=== PATIENT | female | born 2000 | race Caucasian/White ===

== ENCOUNTER 2020-05-18 15:40 | Emergency (ER) | payer MEDICAID ==
[~2020-05-18] VITALS: Ht 162.6 cm; Wt 61.7 kg
[2020-05-18 18:39] LABS: BASOPHILS # (AUTO) 0.1 X10'3 (0-0.2); BASOPHILS % (AUTO) 0.8 % (0-1); EOSINOPHILS # (AUTO) 0.2 X10'3 (0-0.9); EOSINOPHILS % (AUTO) 2.4 % (0-6); HEMATOCRIT 40.1 % (35.0-45.0); HEMOGLOBIN 13.6 g/dl (12.0-16.0); LYMPHOCYTES % (AUTO) 39.6 % (21-51); MEAN CORPUSCULAR HEMOGLOBIN 29.5 PG (27.0-31.0); MEAN CORPUSCULAR HGB CONC 33.9 g/dL (33.0-36.5); MEAN PLATELET VOLUME 7.4 FL (7.4-10.4); MONOCYTES # (AUTO) 0.6 X10'3 (0-0.9); MONOCYTES % (AUTO) 7.4 % (2-12); NEUTROPHILS # (AUTO) 3.8 X10'3 (1.8-7.7); NEUTROPHILS % (AUTO) 49.8 % (42-75); PLATELET COUNT 339 X10'3 (140-440); RED BLOOD COUNT 4.61 X10'6 (4.20-5.60); RED CELL DISTRIBUTION WIDTH 14.1 % (11.5-14.5); WHITE BLOOD COUNT 7.7 X10'3 (4.5-11.0)
[2020-05-18 18:59] LABS: ALANINE AMINOTRANSFERASE 15 U/L (12-78); ALBUMIN 4.4 G/DL (3.4-5.0); ALBUMIN/GLOBULIN RATIO 1.1 (1.1-1.5); ALKALINE PHOSPHATASE 74 IU/L (20-180); ANION GAP 11 (8-16); ASPARTATE AMINO TRANSFERASE 13 U/L (10-37); BILIRUBIN,TOTAL 0.7 MG/DL (0.1-1.0); BLOOD UREA NITROGEN 12 MG/DL (7-18); BUN/CREATININE RATIO 15.4 (6.6-38.0); CALCIUM 9.1 MG/DL (8.5-10.1); CHLORIDE 105 MMOL/L (99-107); CREATININE 0.78 MG/DL (0.40-0.90); GLUCOSE 108 MG/DL (70-104); POTASSIUM 3.4 MMOL/L (3.5-5.1); SODIUM 141 MMOL/L (135-145); TOTAL CARBON DIOXIDE 25.5 MMOL/L (24-32); TOTAL PROTEIN 8.4 G/DL (6.4-8.2); eGFR > 90 ML/MIN
[2020-05-18 19:08] LABS: ETHANOL < 0.010 GM/DL (0.0-0.010)
[2020-05-18] MEDS ORDERED: OLANZapine 2.5MG tablet PO SCH (19:10)
[2020-05-18] MEDS ORDERED: OLANZapine 2.5MG tablet PO ONE (19:10)
--- NOTE | 2020-05-18 19:12 | NUR ---
Dr Gonzales notified of auditory hallucinations telling her things are not safe. orders received patient notified that she is safe and validated she can hear voices however I can not she than stated she sees flashes of light.
[2020-05-18 19:15] LABS: ACETAMINOPHEN < 2.0 UG/ML (10-30)
--- NOTE | 2020-05-18 20:42 | NUR ---
losed wants light left on verbalized fear of dark
--- NOTE | 2020-05-18 21:10 | NUR ---
SLEEPING ON RIGHT SIDE, NO DISTRESS.
--- NOTE | 2020-05-18 22:47 | NUR ---
SLEEPING ON BACK
--- NOTE | 2020-05-19 02:12 | NUR ---
pt sleeping, lying on her right side with blankets covering to her shouders. sitter within view of pt aat.
--- NOTE | 2020-05-19 04:55 | NUR ---
PT UPDATED OF THE NEED FOR URINE, STATES SHE IS STILL UNABLE TO VOID. WASHERY BOSS , LIN, WILLIAM. PKT HAS BEEN SENT TO MENTAL HEALTH OFFICE.
--- NOTE | 2020-05-19 07:00 | NUR ---
PT IS SLEEPING
--- NOTE | 2020-05-19 08:00 | NUR ---
PT IS SLEEPING
[2020-05-19 09:14] LABS: URINE HCG NEGATIVE (NEG)
[2020-05-19 09:15] LABS: CLARITY,URINE CLOUDY (Clear); COLOR,URINE YELLOW (Yellow); GLUCOSE, URINE NEGATIVE (Neg); KETONES,URINE NEGATIVE (Neg); LEUKOCYTE ESTERASE ,URINE SMALL (Neg); NITRITES, URINE POSITIVE (Neg); OCCULT BLOOD,URINE SMALL (Neg); PROTEIN,URINE NEGATIVE (Neg)
[2020-05-19 09:16] LABS: UA COLLECTION TYPE CLN CATCH MIDSTREAM
[2020-05-19 09:23] LABS: BACTERIA,URINE 4+ /HPF (Neg); MUCUS STRANDS MANY /LPF (Neg); SQUAMOUS EPITHELIAL CELL,UR MODERATE /LPF (FEW); WBC CLUMPS,URINE MODERATE /HPF (NEGATIVE); WBC,URINE 50-100 /HPF (0-4)
[2020-05-19 09:29] LABS: URINE AMPHETAMINE SCREEN NEGATIVE (Neg); URINE BARBITUATE SCREEN NEGATIVE (Neg); URINE BENZODIAZEPINES SCREEN POSITIVE (Neg); URINE CANNABINOID SCREEN NEGATIVE (Neg); URINE COCAINE SCREEN NEGATIVE (Neg); URINE METHADONE SCREEN NEGATIVE (Neg); URINE OPIATE SCREEN NEGATIVE (Neg); URINE PHENCYCLIDINE SCREEN NEGATIVE (Neg)
--- NOTE | 2020-05-19 09:50 | NUR ---
pt walked over from main er room 14 to overflow 26
--- NOTE | 2020-05-19 11:00 | NUR ---
pt is waiting for her brother to come get her
--- NOTE | 2020-05-19 12:00 | NUR ---
pt is resting in her room no issues
[2020-05-19] MEDS ORDERED: LEVO50TA8 PO (12:29)
--- NOTE | 2020-05-19 13:00 | NUR ---
pt is resting
[2020-05-19] MEDS ORDERED: levoTHYROXINE 25mcg tablet PO ONE (13:50)
--- NOTE | 2020-05-19 14:00 | NUR ---
pt is stating she is having si again and hearing voices. pt doesnt feel like its safe to go home at this time. pt asked to move to room 23 so she could be closer to the nurse's station. family informed that she will be staying on a 5150. Spoke with Dr. Carmona who recommended order zyprexa 10 mg bid and ativan 0.5 mg bid along with a micro of urine
[2020-05-19] MEDS ORDERED: OLANZAPINE 5 MG TABLET PO ONE (14:45)
[2020-05-19] MEDS ORDERED: olanzapine 10mg tablet PO ONE (14:45)
[2020-05-19] MEDS ORDERED: LORazepam 0.5 MG tablet PO PRN (14:55)
[2020-05-19] MEDS: olanzapine 10mg tablet PO SCH (15:10)
--- NOTE | 2020-05-19 15:19 | NUR ---
pt is resting in bed at this time
--- NOTE | 2020-05-19 16:00 | NUR ---
pt is resting
--- NOTE | 2020-05-19 17:05 | NUR ---
pt is talking to her brother
--- NOTE | 2020-05-19 18:00 | NUR ---
pt is resting in her room
--- NOTE | 2020-05-19 18:24 | NUR ---
Assumed care of pt. Pt resting in bed, assisted to restroom and given meal tray.
--- NOTE | 2020-05-19 20:17 | NUR ---
Pt resting in bed with sitter at room. [facility] called stating [place] available for pt and requires a rapid covid test.
--- NOTE | 2020-05-19 21:44 | NUR ---
Faxed copy of HCG result and Covid swab to [facility]
--- NOTE | 2020-05-20 01:22 | NUR ---
Pt resting in bed, appears to be sleeping. RR 16 pt pink, warm and dry.
[2020-05-20 05:54] VITALS: BP 94/56
--- NOTE | 2020-05-20 05:55 | NUR ---
Pt resting. Vitals taken. Pt states she is tired but the voices she is hearing are not as bad.
--- NOTE | 2020-05-20 06:51 | NUR ---
Pt is sleeping. Respirations unlabored. NAD
[2020-05-20] MEDS ORDERED: levoTHYROXINE 25mcg tablet PO SCH (07:00)
[2020-05-20] MEDS: olanzapine 10mg tablet PO SCH (07:46)
--- NOTE | 2020-05-20 07:52 | NUR ---
Pt awake for morning pills and assessment. Pt given warm blanket. Pt denies any pain or further needs at this time.
--- NOTE | 2020-05-20 09:00 | NUR ---
Pt sleeping. Respirations unlabored. NAD
--- NOTE | 2020-05-20 10:00 | NUR ---
Pt sleeping. Respirations unlabored. NAD
--- NOTE | 2020-05-20 11:00 | NUR ---
I AGREE WITH INITIAL ASSESSMENT
--- NOTE | 2020-05-20 12:57 | NUR ---
[facility] CALLED, PT HAS BEEN ACCEPTED TO [facility] BY DR RUBIN. PT WILL BE TRANSFER WILL OCCURE AT APPROX 1500 THIS AFTERNOON. PROVIDER NOTIFIED
--- NOTE | 2020-05-20 14:57 | NUR ---
AMBULATED WNL TO BATHROOM WITH HER SITTER
--- NOTE | 2020-05-20 15:01 | NUR ---
PATIENT APPEARS WITHDRAWN,SAD. PATIENT STATES THAT SHE IS HEARING VOICING SAYING "MURDER SELF". SHE STATES THAT SHE TOOK PSYCHEDELIC MUSHROOMS ABOUT A MONTH AGO AND HAS HEARD VOICES EVER SINCE. SHE SEES A THERAPIST IN [place] AND WAS TAKING CLASSES AT [facility] [place] IN [place] AND NOW HAS MOVED IN WITH HER PARENTS.
--- NOTE | 2020-05-20 17:17 | NUR ---
ORIGINAL 0312 CENT TO [facility] VIA MOOKIE, PCT
[2020-05-20] MEDS ORDERED: nitrofuran/nitrofuran macrocrysal 100 MG capsule PO SCH (20:00)
== END 2020-05-20 17:17 | disposition home or self-care (01) ==
LOC: ER 15:41
DX: F29 Unspecified psychosis not due to a substance or known physiological condition (principal); Z20.828 Contact with and (suspected) exposure to other viral communicable diseases; F41.9 Anxiety disorder, unspecified; F32.9 Major depressive disorder, single episode, unspecified; F12.90 Cannabis use, unspecified, uncomplicated; Z79.899 Other long term (current) drug therapy
CPT/HCPCS: 36415; 70450; 80053; 80305; 80320; 80329; 81001; 81025; 84443; 85025; 87088; 87635; 99284; C9803; 87186

== ENCOUNTER 2020-06-03 21:01 | Emergency (ER) | payer MEDICAID ==
[~2020-06-03] VITALS: Ht 165.1 cm; Wt 54.5 kg
[~2020-06-03 21:01] MED LIST: ATI1T PO; LEVO50TA8 PO; PRAZ1CAP5 PO; RISP1TAB98 PO; RISP2TAB85 PO
--- NOTE | 2020-06-03 21:17 | NUR ---
Pt also reports taking some "shrooms" today around 1500.
--- NOTE | 2020-06-03 21:42 | NUR ---
Spoke with Poison Control at this time, who report to get usual lab work and monitor patient for 6 hours on panel monitor/BP. notified.
[2020-06-03 21:57] LABS: BASOPHILS % (AUTO) 0.5 % (0-1); EOSINOPHILS # (AUTO) 0.3 X10'3 (0-0.9); EOSINOPHILS % (AUTO) 3.6 % (0-6); HEMATOCRIT 39.8 % (35.0-45.0); LYMPHOCYTES # (AUTO) 3.4 X10'3 (1.1-4.8); LYMPHOCYTES % (AUTO) 37.4 % (21-51); MEAN CORPUSCULAR HEMOGLOBIN 28.3 PG (27.0-31.0); MEAN CORPUSCULAR HGB CONC 32.8 g/dL (33.0-36.5); MEAN CORPUSCULAR VOLUME 86.2 FL (78-98); MEAN PLATELET VOLUME 7.3 FL (7.4-10.4); MONOCYTES # (AUTO) 0.8 X10'3 (0-0.9); MONOCYTES % (AUTO) 8.3 % (2-12); NEUTROPHILS # (AUTO) 4.6 X10'3 (1.8-7.7); NEUTROPHILS % (AUTO) 50.2 % (42-75); PLATELET COUNT 314 X10'3 (140-440); RED BLOOD COUNT 4.61 X10'6 (4.20-5.60); RED CELL DISTRIBUTION WIDTH 14.1 % (11.5-14.5); WHITE BLOOD COUNT 9.1 X10'3 (4.5-11.0)
[2020-06-03 22:22] LABS: ALANINE AMINOTRANSFERASE 20 U/L (12-78); ALBUMIN 4.2 G/DL (3.4-5.0); ALBUMIN/GLOBULIN RATIO 1.2 (1.1-1.5); ALKALINE PHOSPHATASE 66 IU/L (20-180); ANION GAP 10 (8-16); ASPARTATE AMINO TRANSFERASE 23 U/L (10-37); BILIRUBIN,TOTAL 1.1 MG/DL (0.1-1.0); BLOOD UREA NITROGEN 10 MG/DL (7-18); BUN/CREATININE RATIO 11.6 (6.6-38.0); CALCIUM 8.9 MG/DL (8.5-10.1); CHLORIDE 109 MMOL/L (99-107); CREATININE 0.86 MG/DL (0.40-0.90); GLUCOSE 89 MG/DL (70-104); POTASSIUM 3.5 MMOL/L (3.5-5.1); SODIUM 146 MMOL/L (135-145); TOTAL CARBON DIOXIDE 27.4 MMOL/L (24-32); TOTAL PROTEIN 7.8 G/DL (6.4-8.2); eGFR 84 ML/MIN
[2020-06-03 22:32] LABS: ACETAMINOPHEN < 2.0 UG/ML (10-30); ETHANOL < 0.010 GM/DL (0.0-0.010)
[2020-06-03 23:45] LABS: URINE HCG NEGATIVE (NEG)
[2020-06-03 23:58] LABS: URINE AMPHETAMINE SCREEN NEGATIVE (Neg); URINE BARBITUATE SCREEN NEGATIVE (Neg); URINE BENZODIAZEPINES SCREEN NEGATIVE (Neg); URINE CANNABINOID SCREEN NEGATIVE (Neg); URINE COCAINE SCREEN NEGATIVE (Neg); URINE METHADONE SCREEN NEGATIVE (Neg); URINE OPIATE SCREEN NEGATIVE (Neg); URINE PHENCYCLIDINE SCREEN NEGATIVE (Neg)
--- NOTE | 2020-06-04 01:00 | NUR ---
Pt sleeping, vitals taken
[2020-06-04 01:52] LABS: CLARITY,URINE CLEAR (Clear); COLOR,URINE YELLOW (Yellow); GLUCOSE, URINE NEGATIVE (Neg); KETONES,URINE NEGATIVE (Neg); LEUKOCYTE ESTERASE ,URINE NEGATIVE (Neg); NITRITES, URINE NEGATIVE (Neg); OCCULT BLOOD,URINE NEGATIVE (Neg); PROTEIN,URINE TRACE mg/dl (Neg); UROBILINOGEN,URINE 0.2 E.U/dL (0.2-1.0)
[2020-06-04 01:58] LABS: UA COLLECTION TYPE CLN CATCH MIDSTREAM
[2020-06-04 02:08] LABS: RBC,URINE 0-2 /HPF (0-2); WBC,URINE 0-4 /HPF (0-4)
[2020-06-04 02:09] LABS: BACTERIA,URINE 3+ /HPF (Neg); MUCUS STRANDS MODERATE /LPF (Neg); SQUAMOUS EPITHELIAL CELL,UR MANY /LPF (FEW)
--- NOTE | 2020-06-04 03:59 | NUR ---
Spoke with poison control pharmacist, Siri. She advises an EKG as well as checking oral cavity for clark and testing pt's ability to swallow effectively.
--- NOTE | 2020-06-04 04:32 | NUR ---
EKG done, shown to Dr. Lowe. Pt asked for sleep aid, notified Dr. Lowe who states he will put in an order for Melatonin. Pt mouth inspected, some redness noted on top of tongue. Pt denies any pain in mouth or throat and denies pain when swallowing. Pt able to drink water without issues.
[2020-06-04] MEDS ORDERED: RISP1TAB98 PO (04:53)
[2020-06-04] MEDS ORDERED: PRAZ1CAP5 PO (04:53)
[2020-06-04] MEDS ORDERED: RISP2TAB85 PO (04:53)
[2020-06-04] MEDS ORDERED: LORA-269 PO (04:53)
--- NOTE | 2020-06-04 06:17 | NUR ---
Pt sleeping. RR16
--- NOTE | 2020-06-04 07:00 | NUR ---
Received pt from [facility].
--- NOTE | 2020-06-04 07:15 | NUR ---
Pt began crying. Asked pt what was wrong. Pt stated, "I'm scared to , I don't want to ." Reassured patient that she was safe. Pt wished for someone to sit by her. Reassured pt that RN and PCT could see her from the nurses's station.
[2020-06-04] MEDS: levoTHYROXINE 25mcg tablet PO SCH ×2 (07:40→08:16)
[2020-06-04] MEDS: risperiDONE 0.5mg tablet PO SCH ×2 (08:00→08:16)
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
[2020-06-04] MEDS: LORazepam 1 MG tablet PO SCH ×2 (08:16→14:00)
--- NOTE | 2020-06-04 08:30 | NUR ---
Pt being evaluated by SCM.
--- NOTE | 2020-06-04 08:32 | NUR ---
Note genesis in EDM - 06/04/20 at 0834 by BRIANNE Ordered some chicken broth for the patient per her request. Pt drank some of the broth. Pt spit out her pills. Pt stated that the pills make her feel sick. Pt stated that the pills made her feel suicidal. Pt stated that before she was on these pills, she was on some other ones that made her hear voices.
--- NOTE | 2020-06-04 08:34 | NUR ---
Ordered some chicken broth for the patient per her request. Pt drank some of the broth. Pt spit out her pills. Pt stated that the pills make her feel sick. Pt stated that the pills made her feel suicidal. Pt stated that before she was on these pills, she was on some other ones that made her hear voices. Noted Risperdal and levothyroxine in emesis bag, did not find the ativan, it may have dissolved in her mouth.
--- NOTE | 2020-06-04 09:02 | NUR ---
Breaking primary RN, pt is supine in bed, was just speaking to SHAY Camara, she is now aware that the plan is to send her upstairs, she is not pleased with the decision, will continue to monitor
--- NOTE | 2020-06-04 09:53 | NUR ---
Pt is being placed on a [place]0.
--- NOTE | 2020-06-04 11:53 | NUR ---
Received call from poison control and updated on pts VSs and mental status. No new recommendations.
--- NOTE | 2020-06-04 12:43 | NUR ---
Received a call from Lizet at [facility] to inquire about the patient. They requested recent TSH and UA results be faxed to [place] office and sent to them. Called [place] office who state [facility]. [place] office is requesting a rapid Covid test be done for placement. [facility] wanted to verify with infection control that we had enough rapid tests to do so. Left message for [facility] marketing content coordinator. Addendum: 06/04/20 at 1314 by BRIANNE Received a call back from marketing content coordinator he will check to see if we have adequate supplies to do a rapid Covid test.
--- NOTE | 2020-06-04 13:15 | NUR ---
Pt c/o nausea but declined offer to obtain order for antinausea medication stating that she doesn't want to take medicine.
--- NOTE | 2020-06-04 13:15 | NUR ---
[facility] called to say we have enough supplies to do a rapid Covid test on the pt.
--- NOTE | 2020-06-04 13:19 | NUR ---
Pt is on the phone with her brother.
--- NOTE | 2020-06-04 13:20 | NUR ---
Notified [facility] office that a rapid Covid test will be done on the patient.
--- NOTE | 2020-06-04 13:41 | NUR ---
Pt states she is a vegetarian and is requesting a diet change.
--- NOTE | 2020-06-04 13:53 | NUR ---
Collected and sent a rapid Covid swab.
--- NOTE | 2020-06-04 15:13 | NUR ---
Lab results faxed to [facility] office and [facility] per requirements for pt placement.
--- NOTE | 2020-06-04 15:49 | NUR ---
Rylie from [facility] called to say pt has been accepted at [facility] by Dr Graham. substation superintendent time will be just after 1900 [place].
--- NOTE | 2020-06-04 16:14 | NUR ---
Pt adjusted her own bed using the controls at the bottom. Pt has been frequently getting out of bed on her own and walking around. Pt stated that ever since she used shrooms weeks ago she had continue to feel like she is on a mushroom trip.
[2020-06-04 17:29] VITALS: BP 108/71
--- NOTE | 2020-06-04 17:32 | NUR ---
Spoke with Cori's mom per patient's wishes. Mom notified that pt is being transferred to [facility] this evening.
--- NOTE | 2020-06-04 18:56 | NUR ---
Assumed care from RICKY Craig. Pt's DC planned for around 7 pm pickup to moved to [facility]. Pt is aware of the plan. Pt sitting up in her bed and intermittently walking around the unit and stopping and stretching her arms. She is cooperative. Flat affect. Reported to have been cooperative and appropriate throughout the day.
[2020-06-04] MEDS ORDERED: prazosin 1mg capsule PO SCH (21:00)
[2020-06-04] MEDS ORDERED: risperiDONE 2mg tablet PO SCH (21:00)
== END 2020-06-04 19:38 ==
LOC: ER 21:02
DX: T54.91XA Toxic effect of unspecified corrosive substance, accidental (unintentional), initial encounter (principal); Z20.828 Contact with and (suspected) exposure to other viral communicable diseases; F29 Unspecified psychosis not due to a substance or known physiological condition; F41.9 Anxiety disorder, unspecified; F32.9 Major depressive disorder, single episode, unspecified; F12.90 Cannabis use, unspecified, uncomplicated; Z79.899 Other long term (current) drug therapy; Y92.89 Other specified places as the place of occurrence of the external cause
CPT/HCPCS: 36415; 80053; 80305; 80320; 80329; 81001; 81025; 85025; 87635; 93005; 99285; C9803

== ENCOUNTER 2020-08-26 20:38 | Emergency (ER) | payer MEDICAID ==
[~2020-08-26] VITALS: Ht 162.6 cm; Wt 113.6 kg
[~2020-08-26 20:38] MED LIST changes: -ATI1T PO; +LORA-269 PO
[2020-08-26 21:35] LABS: URINE HCG NEGATIVE (NEG)
[2020-08-26 21:37] LABS: CLARITY,URINE CLEAR (Clear); COLOR,URINE STRAW (Yellow); GLUCOSE, URINE NEGATIVE (Neg); KETONES,URINE NEGATIVE (Neg); LEUKOCYTE ESTERASE ,URINE NEGATIVE (Neg); NITRITES, URINE NEGATIVE (Neg); OCCULT BLOOD,URINE NEGATIVE (Neg); PH,URINE 6.5 (4.8-8.0); PROTEIN,URINE NEGATIVE (Neg); UROBILINOGEN,URINE 0.2 E.U/dL (0.2-1.0)
[2020-08-26 21:40] LABS: URINE AMPHETAMINE SCREEN NEGATIVE (Neg); URINE BARBITUATE SCREEN NEGATIVE (Neg); URINE BENZODIAZEPINES SCREEN NEGATIVE (Neg); URINE CANNABINOID SCREEN NEGATIVE (Neg); URINE COCAINE SCREEN NEGATIVE (Neg); URINE METHADONE SCREEN NEGATIVE (Neg); URINE OPIATE SCREEN NEGATIVE (Neg); URINE PHENCYCLIDINE SCREEN NEGATIVE (Neg)
[2020-08-26 21:44] LABS: UA COLLECTION TYPE CLN CATCH MIDSTREAM
[2020-08-26 21:47] LABS: BASOPHILS % (AUTO) 0.4 % (0-1); EOSINOPHILS # (AUTO) 0.6 X10'3 (0-0.9); EOSINOPHILS % (AUTO) 6.6 % (0-6); HEMATOCRIT 36.6 % (35.0-45.0); HEMOGLOBIN 12.2 g/dl (12.0-16.0); LYMPHOCYTES # (AUTO) 2.8 X10'3 (1.1-4.8); LYMPHOCYTES % (AUTO) 33.9 % (21-51); MEAN CORPUSCULAR HEMOGLOBIN 28.6 PG (27.0-31.0); MEAN CORPUSCULAR HGB CONC 33.5 g/dL (33.0-36.5); MEAN CORPUSCULAR VOLUME 85.4 FL (78-98); MEAN PLATELET VOLUME 6.8 FL (7.4-10.4); MONOCYTES # (AUTO) 0.6 X10'3 (0-0.9); MONOCYTES % (AUTO) 7.7 % (2-12); NEUTROPHILS # (AUTO) 4.3 X10'3 (1.8-7.7); NEUTROPHILS % (AUTO) 51.4 % (42-75); PLATELET COUNT 334 X10'3 (140-440); RED BLOOD COUNT 4.28 X10'6 (4.20-5.60); WHITE BLOOD COUNT 8.3 X10'3 (4.5-11.0)
[2020-08-26 21:52] LABS: ALANINE AMINOTRANSFERASE 15 U/L (12-78); ALBUMIN 3.8 G/DL (3.4-5.0); ALKALINE PHOSPHATASE 65 IU/L (46-116); ANION GAP 12 (8-16); ASPARTATE AMINO TRANSFERASE 25 U/L (10-37); BILIRUBIN,TOTAL 0.3 MG/DL (0.1-1.0); BLOOD UREA NITROGEN 10 MG/DL (7-18); BUN/CREATININE RATIO 12.5 (6.6-38.0); CALCIUM 9.5 MG/DL (8.5-10.1); CHLORIDE 102 MMOL/L (99-107); GLUCOSE 102 MG/DL (70-104); POTASSIUM 3.6 MMOL/L (3.5-5.1); SODIUM 140 MMOL/L (135-145); TOTAL CARBON DIOXIDE 26.2 MMOL/L (24-32); TOTAL PROTEIN 7.8 G/DL (6.4-8.2); eGFR > 90 ML/MIN
[2020-08-26] MEDS ORDERED: temazepam 15mg capsule PO ONE (22:20)
[2020-08-26 22:34] LABS: ETHANOL < 0.010 GM/DL (0.0-0.010)
[2020-08-26] MEDS ORDERED: LITH300C PO (22:49)
[2020-08-26] MEDS ORDERED: PALI6TAB PO (22:49)
[2020-08-26] MEDS ORDERED: TEMA30CA PO (22:52)
[2020-08-26] MEDS ORDERED: NORE-101 PO (22:52)
[2020-08-26] MEDS ORDERED: PRAZ2CAP2 PO (22:52)
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
--- NOTE | 2020-08-27 02:13 | NUR ---
faxed records to [facility]
--- NOTE | 2020-08-27 02:37 | NUR ---
Patient was sleeping quietly when this commercial insurance underwriter assumed patient care. Patient sleeps quietly, no distress. In view from the nurses station. Direct observation and frequent rounding for patient safety.
--- NOTE | 2020-08-27 05:13 | NUR ---
Patient sleeping quietly in her low fowlers position.
--- NOTE | 2020-08-27 06:25 | NUR ---
Assumed care of patient. Pt appears to be sleeping, no distress noted. Pt sleeping in supine position.
[2020-08-27] MEDS ORDERED: lithium carbonate 300mg SR tablet (LithoBID) PO SCH (08:00)
[2020-08-27] MEDS: PALIPERIDONE 3 MG TAB.ER.24 PO SCH (08:13)
--- NOTE | 2020-08-27 08:20 | NUR ---
Patient awake sitting up in bed finishing her breakfast. Pt was compliant with care and medications. Pt presents with a monotone, somwhat mumbled speech and flat affect. Pt denies S/I, but endorses CAH to hurt "other people." Pt is not forthcoming with conversation and requests repairer typewriter to put the HOB down and turn off the light. Pt is sleeping comfortably as of this writing.
--- NOTE | 2020-08-27 09:30 | NUR ---
Patient became fixated that she was on 12mg of Palperidone and not the 6mg that was administered this morning at 0800. Commercial Food Instructor called [facility] and most current dose of Palperidone was 6mg daily, pt. also receives Invega Sustenna JONES. Commercial Food Instructor then called and spoke with Celeste at [facility], pt is established with Dr. Flowers. Per Celeste pt was seen at [facility] ER on 08/23 r/t increased command auditory hallucinations and S/I. Pt's PO Palperidone was increased to 9 mg daily at this time and pt was to follow up with Dr. Flowers on 08/28. Pt's last Invega Sustenna injection was on 08/05/20, which was administered early r/t increased auditory hallucinations. Dr. Flowers was going to consider switching pt to Clozaril r/t decrease effectiveness of the Invega Sustenna. Will continue to monitor pt and follow up with any medication changes.
--- NOTE | 2020-08-27 10:30 | NUR ---
Patient appears to be sleeping, no distress or restlessness noted. Pt lying on her right side.
--- NOTE | 2020-08-27 11:15 | NUR ---
Spoke with Cal Acosta PA. Received order for Zyprexa 10 mg BID, will continue pt on 6mg Paliperidone then taper. Pt on 300mg [place] q12 - ordered [place] level and will monitor.
--- NOTE | 2020-08-27 12:30 | NUR ---
Pt sitting up in bed reading a book. Pt has had no outbursts and remains calm and cooperative.
[2020-08-27] MEDS ORDERED: olanzapine 10mg tablet PO ONE (13:25)
--- NOTE | 2020-08-27 13:59 | NUR ---
Administered PO Zyprexa 10mg. Pt continues to endorse AH telling her to hurt herself and others, pt does not elaborate specifics of commands.
--- NOTE | 2020-08-27 14:26 | NUR ---
Received phone call from Anum from [facility]. Pt was accepted at [facility] by Dr. Graham. special assemblies supervisor will be at 1700.
--- NOTE | 2020-08-27 15:00 | NUR ---
Received phone call from Dr. Castaneda - pt's [place] level was 2.2. Pt on [place] 300mg q12h. Called Poison Control - spoke with Guillermo. Recommendation: Hydration - pt drinking PO water without issue as of this writing pt has consumed 1,500 mL of fluids and eating without issue. Repeat chem 7 to [monitor Na+]and [place] level q4hrs until two down trending levels. If [place] increases conside bolus of NS.
--- NOTE | 2020-08-27 15:05 | NUR ---
DISCONTINUED Luana in eMAR.
--- NOTE | 2020-08-27 15:45 | NUR ---
Called and spoke with Jen at [facility], [place] regarding status of patient. Jen requested an update later this evening. Will endorse to next shift.
[2020-08-27 16:06] LABS: ALANINE AMINOTRANSFERASE 20 U/L (12-78); ALBUMIN 3.7 G/DL (3.4-5.0); ALBUMIN/GLOBULIN RATIO 1.1 (1.1-1.5); ALKALINE PHOSPHATASE 57 IU/L (46-116); ANION GAP 11 (8-16); ASPARTATE AMINO TRANSFERASE 12 U/L (10-37); BILIRUBIN,TOTAL 0.3 MG/DL (0.1-1.0); BLOOD UREA NITROGEN 10 MG/DL (7-18); BUN/CREATININE RATIO 13.7 (6.6-38.0); CALCIUM 8.9 MG/DL (8.5-10.1); CHLORIDE 107 MMOL/L (99-107); CREATININE 0.73 MG/DL (0.40-0.90); GLUCOSE 107 MG/DL (70-104); POTASSIUM 3.7 MMOL/L (3.5-5.1); SODIUM 143 MMOL/L (135-145); eGFR > 90 ML/MIN
--- NOTE | 2020-08-27 16:08 | NUR ---
Patient completed additional 650 mL of fluids. Sitting up in bed reading a book. No distress noted. Continues to endorse AH, but is managing it at his time.
--- NOTE | 2020-08-27 17:43 | NUR ---
Lab at bedside. Patient compliant with care.
[2020-08-27 18:16] LABS: ALANINE AMINOTRANSFERASE 16 U/L (12-78); ALBUMIN 3.9 G/DL (3.4-5.0); ALKALINE PHOSPHATASE 60 IU/L (46-116); ANION GAP 11 (8-16); ASPARTATE AMINO TRANSFERASE 11 U/L (10-37); BILIRUBIN,TOTAL 0.4 MG/DL (0.1-1.0); BLOOD UREA NITROGEN 9 MG/DL (7-18); BUN/CREATININE RATIO 13.6 (6.6-38.0); CALCIUM 9.4 MG/DL (8.5-10.1); CHLORIDE 105 MMOL/L (99-107); CREATININE 0.66 MG/DL (0.40-0.90); GLUCOSE 82 MG/DL (70-104); POTASSIUM 3.7 MMOL/L (3.5-5.1); SODIUM 143 MMOL/L (135-145); TOTAL CARBON DIOXIDE 27.1 MMOL/L (24-32); eGFR > 90 ML/MIN
--- NOTE | 2020-08-27 18:30 | NUR ---
Patient sleeping following shift change. She has eaten. No signs of distress.
--- NOTE | 2020-08-27 19:11 | NUR ---
Assumed patient care. Patient is quiet and depressed. She ate her dinner, she then went to sleep after being given warm blankets.
--- NOTE | 2020-08-27 19:37 | NUR ---
Patient is up to bathroom to void. Normal gait. Patient is back to bed and sleeping.
[2020-08-27 19:55] LABS: ALANINE AMINOTRANSFERASE 14 U/L (12-78); ALBUMIN 3.6 G/DL (3.4-5.0); ALBUMIN/GLOBULIN RATIO 0.9 (1.1-1.5); ALKALINE PHOSPHATASE 59 IU/L (46-116); ANION GAP 12 (8-16); ASPARTATE AMINO TRANSFERASE 10 U/L (10-37); BILIRUBIN,TOTAL 0.4 MG/DL (0.1-1.0); BLOOD UREA NITROGEN 9 MG/DL (7-18); BUN/CREATININE RATIO 12.7 (6.6-38.0); CALCIUM 9.1 MG/DL (8.5-10.1); CHLORIDE 105 MMOL/L (99-107); CREATININE 0.71 MG/DL (0.40-0.90); GLUCOSE 135 MG/DL (70-104); POTASSIUM 3.8 MMOL/L (3.5-5.1); SODIUM 141 MMOL/L (135-145); TOTAL CARBON DIOXIDE 23.9 MMOL/L (24-32); TOTAL PROTEIN 7.4 G/DL (6.4-8.2); eGFR > 90 ML/MIN
--- NOTE | 2020-08-27 20:01 | NUR ---
Patient sleeps quietly, low fowlers in bed. Patient has self re-positioned. Close observation from the nurses station.
[2020-08-27] MEDS: OLANZAPINE 5 MG TABLET PO SCH (20:14)
[2020-08-27] MEDS ORDERED: LORazepam 2 mg/ml vial IV ONE (20:45)
[2020-08-27] MEDS ORDERED: prazosin 1mg capsule PO SCH (21:00)
[2020-08-27] MEDS ORDERED: NORETHINDRONE AC ETH ESTRADIOL PO SCH (21:00)
[2020-08-27] MEDS ORDERED: temazepam 15mg capsule PO SCH (21:00)
--- NOTE | 2020-08-27 21:30 | NUR ---
Patient awakens, looks disheveled. Patient looks depressed. She is given warm blankets, she returns to sleep.
--- NOTE | 2020-08-27 22:00 | NUR ---
Patient sleeping on her right side, no distress.
--- NOTE | 2020-08-27 23:44 | NUR ---
Patient was sleeping, she had awoken and requested a warm blanket. No distress.
--- NOTE | 2020-08-28 02:54 | NUR ---
Patient sleeps quietly, supine position in bed.
--- NOTE | 2020-08-28 03:36 | NUR ---
Patient remains sleeping well. No distress at this time. Respirations are quiet. Fresh blankets placed over patient. Patient is in view from the nurses station.
--- NOTE | 2020-08-28 04:24 | NUR ---
Patient sleeping quietly, supine, in view from nurses station.
--- NOTE | 2020-08-28 06:46 | NUR ---
Patient sleeping supine in bed. Respirations are even and nonlabored.
[2020-08-28] MEDS: OLANZAPINE 5 MG TABLET PO SCH (08:41)
[2020-08-28] MEDS: PALIPERIDONE 3 MG TAB.ER.24 PO SCH (08:41)
--- NOTE | 2020-08-28 08:47 | NUR ---
Patient took medications without incidence. Patient is now eating breakfast.
--- NOTE | 2020-08-28 09:01 | NUR ---
Patient is being transferred to [facility] at 0915.
[2020-08-28 09:25] VITALS: BP 85/48
== END 2020-08-28 09:35 ==
LOC: ER 20:38
DX: R45.850 Homicidal ideations (principal); Z20.822 Contact with and (suspected) exposure to COVID-19; F41.9 Anxiety disorder, unspecified; F32.9 Major depressive disorder, single episode, unspecified; F12.90 Cannabis use, unspecified, uncomplicated; Z88.8 Allergy status to other drugs, medicaments and biological substances; Z79.899 Other long term (current) drug therapy
CPT/HCPCS: 36415; 80053; 80178; 80305; 80320; 81003; 81025; 85025; 87426; 99285

== ENCOUNTER 2023-12-12 09:02 | Emergency (ER) | payer MEDICAID ==
[~2023-12-12] VITALS: Ht 162.6 cm; Wt 80.6 kg
[~2023-12-12 09:02] MED LIST changes: -LEVO50TA8 PO; +LITH300C PO; -LORA-269 PO; +NORE-101 PO; +PALI6TAB PO; -PRAZ1CAP5 PO; +PRAZ2CAP2 PO; -RISP1TAB98 PO; -RISP2TAB85 PO; +TEMA30CA PO
[2023-12-12 09:07] VITALS: BP 118/77; PULSE 90; RESP 16; TEMP 98.5; O2SAT 99
== END 2023-12-12 10:46 | disposition left against medical advice (07) ==
LOC: ER 09:03
DX: R21 Rash and other nonspecific skin eruption (principal); Z53.21 Procedure and treatment not carried out due to patient leaving prior to being seen by health care provider; Z88.8 Allergy status to other drugs, medicaments and biological substances

== ENCOUNTER → 2025-01-05 | Emergency (ER) | payer MEDICAID ==
[~2025-01-05] VITALS: Ht 162.6 cm; Wt 77.0 kg
[~2025-01-05] MED LIST changes: +AMA100C PO; +ASEN5TAB SL; +CARI4.5C PO; +CLON0.1T2 PO; +DIVA-112 PO; +DIVA500T40 PO; +LEVO50CA5 PO; +LUMA21CA PO; +MONO LINYAH PO SCH; +PRAZ1CAP5 PO; +divalproex sodium 500mg tablet.DR PO SCH; +levoTHYROXINE 25mcg tablet PO SCH
[2025-01-05 10:33] VITALS: TEMP 98
[2025-01-05 12:03] LABS: MEAN PLATELET VOLUME 7.3 FL (7.4-10.4); RED CELL DISTRIBUTION WIDTH 15.2 % (11.5-14.5)
[2025-01-05 12:20] LABS: CREATININE 0.88 MG/DL (0.40-0.90); ETHANOL < 10 MG/DL (<10); TOTAL CARBON DIOXIDE 27.0 MMOL/L (24-32); eCRCL 84 ML/MIN; eGFR 78 ML/MIN
[2025-01-05 12:45] LABS: URINE HCG NEGATIVE (NEG)
[2025-01-05 12:46] LABS: LEUKOCYTE ESTERASE ,URINE NEGATIVE (Neg); NITRITES, URINE NEGATIVE (Neg); OCCULT BLOOD,URINE TRACE-INTACT (Neg)
--- NOTE | 2025-01-05 12:53 | Physician Documentation ---
History of Present Illness ~ Chief Complaint: Mental Health Eval Stated Complaint: MH AND LOW BLOOD PRESSURE Time Seen by MD: 11:07 OK to notify your PCP?: Yes Primary Medical Doctor: [facility] Source: patient, family Mode of Arrival: POV Exam Limitations: no limitations HPI 24-year-old female with chief complaints inability to sleep due to intrusive thoughts. She reports currently she has been up for 24hours as she is "scared to sleep" due to the voices she is hearing and the intrusive thoughts. She reports the thoughts are telling her things that she knows are not real but states they are very disruptive to the point that she is unable to sleep. She states she has not slept in three weeks in parents who are at bedside are extremely concerned about her lack of sleep. She contacted her psychiatrist today and her psychiatrist told her to stop one of her psych medications as of today but otherwise there has been no recent changes to her medications leading up to her symptoms. She has been on a mental health hold but states it has been several years. Medication Reconciliation Allergies: Coded Allergies: haloperidol (Verified Allergy, Severe, TONGUE SWELLS UP, 08/26/20) Scheduled Amantadine Hcl* (Symmetrel*), 1 TAB PO DAILY, (Reported) Amantadine Hcl* (Symmetrel*), 2 TAB PO HS, (Reported) Asenapine Maleate (Saphris), 1 TAB SL DAILY, (Reported) Cariprazine Hydrochloride (Vraylar), 1 CAP PO HS, (Reported) Clonidine HCl (Clonidine HCl), 1 TAB PO HS, (Reported) Divalproex Sodium (Divalproex Sodium), 1 TAB PO DAILY, (Reported) Divalproex Sodium (Divalproex Sodium), 2 TAB PO at noon and at HS, (Reported) Lumateperone Tosylate (Caplyta), 1 CAPSULE PO DAILY, (Reported) Norethindrone AC-Eth Estradiol (Loestrin 21 1-20 Tablet), 1 TAB PO HS, (Reported) Prazosin Hcl (Prazosin Hcl), 1 CAP PO HS, (Reported) Discontinued Medications Rossie Carbonate (Rossie Carbonate), 1 CAP PO Q12H, (Reported) Discontinued Reason: Other Paliperidone (Invega), 2 TAB PO DAILY, (Reported) Discontinued Reason: Other Prazosin Hcl (Prazosin Hcl), 1 CAP PO HS, (Reported) Discontinued Reason: Other Temazepam (Temazepam), 1 CAP PO HS, (Reported) Discontinued Reason: Other Past Medical History Past Medical History: No Pertinent History, Anxiety, Depression Past Surgical History: noncontributory Patient History: Patient reports no known family medical history. Drug Use: marijuana Lives In: Home Occupation: student Review of Systems All Other Systems at this time: Reviewed and Negative Physical Exam Vital Signs: Temperature: 98.0, Source: Temporal, Heart Rate: 104, Respiratory Rate: 16, BP: 107/67, Pulse Oximetry: 98, Weight: 77.000 Oxygen Flow Rate: 0 Physical Exam GENERAL: Alert, no acute distress. HEENT: NCAT, EOMI, PERRL, moist oral mucosa. NECK: Supple, trachea midline. CARDIAC: Regular rate and rhythm, no murmurs, rubs, or gallops. PV: Equal distal pulses. No lower extremity edema, cap refill less than 2 seconds. RESPIRATORY: Equal breath sounds, clear to auscultation bilaterally, no respiratory distress. MUSCULOSKELETAL: Normal gait. NEUROLOGICAL: Awake, alert, and oriented x 3. SKIN: Warm/dry, no pallor, no rash. PSYCH: PATIENT HAS A RIGID POSTURE, LACK OF FACIAL EXPRESSION, VOICE MONOTONE. SPEECH CLEAR. Progress Results/Orders Results/Orders Orders - [facility]SE [facility] Urinalysis (01/05/25 11:40) Hcg, Ur Ql (01/05/25 11:40) Drug Screen, Urine (01/05/25 11:40) Med Rec (01/05/25 11:40) 1799.11 (01/05/25 11:40) Close Observation Level (01/05/25 11:40) Covid19 Binax Poc Result Entry (01/05/25 11:40) Substance Use Navigator (01/05/25 11:40) Regular Diet (01/05/25 Dinner) Completed Orders - ROSE [facility] Cbc/Diff (01/05/25 11:40) Ethanol (01/05/25 11:40) TSH (01/05/25 11:40) BMP (01/05/25 11:40) Vital Signs 01/05/25 10:33 Temp 98.0 Pulse 104 Resp 16 B/P (MAP) 107/67 Pulse Ox 98 O2 Flow Rate 0 Laboratory Tests Test 01/05/25 10:46 01/05/25 12:33 White Blood Count 10.2 Red Blood Count 4.98 Hemoglobin 14.4 Hematocrit 42.6 Mean Corpuscular Volume 85.5 Mean Corpuscular Hemoglobin 29.0 Mean Corpuscular Hemoglobin Concent 33.9 Red Cell Distribution Width 15.2 H Platelet Count 230 Mean Platelet Volume 7.3 L Neutrophils (%) (Auto) 51.0 Lymphocytes (%) (Auto) 43.3 Monocytes (%) (Auto) 5.5 Eosinophils (%) (Auto) 0.1 Basophils (%) (Auto) 0.1 Neutrophils # (Auto) 5.2 Lymphocytes # (Auto) 4.4 Monocytes # (Auto) 0.6 Eosinophils # (Auto) 0.0 Basophils # (Auto) 0.0 CBC Comment Sodium Level 139 Potassium Level 4.7 Chloride Level 104 Carbon Dioxide Level 27.0 Anion Gap 8 Blood Urea Nitrogen 13 Creatinine 0.88 Estimated GFR/1.73 m2 78 BUN/Creatinine Ratio 14.8 Glucose Level 82 Calcium Level 9.0 Albumin 3.4 Thyroid Stimulating Hormone (TSH) 4.30 Chemistry Comments Ethyl Alcohol Level < 10 Urine HCG, Qualitative Negative Urine Comment Drug Screen Comment Medical Decision Making Differential Dx:Considerations: Include: Alcohol abuse, Anxiety, Bipolar disorder, Conversion disorder, Depression, Encephaloathy, Homicidal, Panic disorder, Personality disorder, Schizophrenia, Substance abuse, Suicidal Departure Time of Disposition: 12:51 Disposition: 30 STILL A PATIENT Impression: Primary Impression: Gravely disabled Condition: Stable Discharge Instructions: Medical Screening Exam Additional Instructions: Transfer orders for [facility]: At this time there is no evidence of an emergent medical condition that would preclude (admission/transfer) to a psychiatric unit via [facility] protocol for further psychiatric, as well as medical evaluation and treatment. At this time I have no reason to believe that transfer via [facility] protocol would have serious medical compromise in the patient's health. Referrals: NO PRIMARY CARE PROVIDER (PCP) Education Educated: Patient Educated regarding: diagnosis, treatment, need for follow up Signature Scribe Signature: X Attestation: ROSE MARTINEZ Jan 05, 2025 12:53
[2025-01-05 12:54] LABS: URINE AMPHETAMINE SCREEN NEGATIVE (Neg); URINE BARBITUATE SCREEN NEGATIVE (Neg); URINE BENZODIAZEPINES SCREEN NEGATIVE (Neg); URINE CANNABINOID SCREEN NEGATIVE (Neg); URINE COCAINE SCREEN NEGATIVE (Neg); URINE METHADONE SCREEN NEGATIVE (Neg); URINE OPIATE SCREEN NEGATIVE (Neg); URINE PHENCYCLIDINE SCREEN NEGATIVE (Neg)
[2025-01-05 13:03] LABS: UA COLLECTION TYPE CLN CATCH MIDSTREAM
[2025-01-05 13:35] LABS: SQUAMOUS EPITHELIAL CELL,UR MANY /LPF (FEW)
[2025-01-05 13:36] LABS: MUCUS STRANDS FEW /LPF (Neg)
[2025-01-05] MEDS: divalproex sodium 500mg tablet.DR PO SCH (15:04)
[2025-01-05 20:31] VITALS: BP 130/85; PULSE 122; RESP 22; O2SAT 98
[2025-01-05] MEDS: VRAYLAR 4.5 MG PO SCH (21:00)
== END | disposition still patient (30) ==
LOC: ER 10:33
DX: Z73.6 Limitation of activities due to disability (principal); I10 Essential (primary) hypertension; F12.90 Cannabis use, unspecified, uncomplicated; Z88.8 Allergy status to other drugs, medicaments and biological substances; Z79.899 Other long term (current) drug therapy; Z20.822 Contact with and (suspected) exposure to COVID-19
CPT/HCPCS: 36415; 80048; 80305; 80320; 81001; 81025; 84443; 85025; 99284